=== PATIENT | female | born 1970 | race Hispanic/Latino ===

== ENCOUNTER 2018-02-10 13:12 | Observation (INO) | payer SELFPAY ==
[~2018-02-10] VITALS: Ht 157.5 cm; Wt 83.5 kg
[2018-02-10] MEDS ORDERED: SODIUM CHLORIDE 0.9% 250ML 250 ML IV ONE (13:30)
[2018-02-10 13:48] LABS: BASOPHILS % 0.7 % (0.0-1.0); EOSINOPHILS # (AUTO) 0.1 (0.0-0.4); EOSINOPHILS % 1.8 % (0.0-6.0); LYMPHOCYTES # (AUTO) 1.8 (1.0-3.2); LYMPHOCYTES % 32.7 % (18.0-39.1); MEAN CORPUSCULAR HGB CONC 28.1 g/dL (31-35); MEAN CORPUSCULAR VOLUME 67.5 fL (81-99); MONOCYTES # (AUTO) 0.5 (0.2-0.8); NEUTROPHILS # (AUTO) 3.1 (2.1-6.9); NEUTROPHILS % 55.4 % (38.7-80.0); PLATELET COUNT 257 x10e3/uL (140-360); RED BLOOD COUNT 3.48 x10e6/uL (3.6-5.1); RED CELL DISTRIBUTION WIDTH 17.7 % (11.7-14.4)
[2018-02-10 13:56] LABS: INR 0.88; PROTHROMBIN TIME 12.8 seconds (11.9-14.5)
[2018-02-10 13:57] LABS: PARTIAL THROMBOPLASTIN TIME 19.8 seconds (23.8-35.5)
[2018-02-10 13:58] LABS: HEMATOCRIT 23.5 % (34.2-44.1); HEMOGLOBIN 6.6 g/dL (12.0-16.0)
[2018-02-10 14:04] LABS: ANION GAP 13.3 mmol/L (8-16); BLOOD UREA NITROGEN 14 mg/dL (7-26); BUN/CREATININE RATIO 20 (6-25); CALCIUM 9.4 mg/dL (8.4-10.2); CARBON DIOXIDE 21 mmol/L (22-29); CHLORIDE 109 mmol/L (98-107); CREATININE, SERUM 0.71 mg/dL (0.57-1.11); EST GLOMERULAR FILTRATION RATE > 60 ML/MIN (60-); GLUCOSE 87 mg/dL (74-118); POTASSIUM 4.3 mmol/L (3.5-5.1); SODIUM 139 mmol/L (136-145); TOTAL IRON BINDING CAPACITY 623 ug/dL (261-478); TRANSFERRIN 445 mg/dL (180-382)
[2018-02-10 14:13] LABS: % IRON SATURATION 1 % (15-50); IRON < 5 ug/dL (50-170)
[2018-02-10 14:28] LABS: FERRITIN < 1.00 ng/mL (4.63-204.00)
[2018-02-10] MEDS ORDERED: SODIUM CHLORIDE FLUSH 10 ML SYR INJ PRN (15:00)
[2018-02-10 16:04] VITALS: BP 122/63
[2018-02-10 16:09] VITALS: BP 122/63
[2018-02-10 16:10] VITALS: BP 122/63
[2018-02-10] MEDS ORDERED: SODIUM CHLORIDE 0.9% 250ML 250 ML ONE (17:02)
--- NOTE | 2018-02-10 17:51 | Diagnostic Imaging Report ---
EXAM: Transabdominal and Transvaginal Pelvic Ultrasound INDICATION: ^MENORRHAGIA. Continuously bleeding since 01/02/2018. Patient received Depo-Provera shot 3 days ago at an outside clinic. Some unknown past surgical history to control internal bleeding in 1989. COMPARISON: None TECHNIQUE: Grayscale transverse and sagittal transabdominal and transvaginal images were obtained of the pelvis. Transvaginal imaging was medically necessary to better evaluate the endometrium and the adnexa. CLINICAL HISTORY: 47 year old A0; last menstrual period: Continued bleeding since 01/02/2018.. FINDINGS: Suboptimal exam with limited views. Uterus Orientation: Normal Size: 10.6 cm, Normal Mass: Heterogeneous with a questionable 4.9 x 3.0 x 4.8 cm mass posteriorly. This extends beyond the serosal margin. Cervix: Normal Endometrium: Thickness: 1.7 cm, thickened. Appearance: Heterogeneous echotexture without focal thickening. Increased vascularity. Right ovary: Not visualized Left ovary: Not visualized Adnexa: Normal Cul-de-sac: No free fluid IMPRESSION: 1. Mildly thickened heterogeneous endometrial stripe with internal vascularity. This is highly concerning for endometrial hyperplasia or carcinoma. Recommend D[employer] CUTTER DI[employer]OND consult. 2. Ill-defined heterogeneous lesion along the posterior myometrium. This may represent focal adenomyosis. However, limited visualization. Recommend further evaluation. Signed by: Dr. Newton Ontiveros M.D. on 02/10/2018 5:48 PM
--- NOTE | 2018-02-10 17:51 | Diagnostic Imaging Report ---
EXAM: Transabdominal and Transvaginal Pelvic Ultrasound INDICATION: ^MENORRHAGIA. Continuously bleeding since 01/02/2018. Patient received Depo-Provera shot 3 days ago at an outside clinic. Some unknown past surgical history to control internal bleeding in 1989. COMPARISON: None TECHNIQUE: Grayscale transverse and sagittal transabdominal and transvaginal images were obtained of the pelvis. Transvaginal imaging was medically necessary to better evaluate the endometrium and the adnexa. CLINICAL HISTORY: 47 year old A0; last menstrual period: Continued bleeding since 01/02/2018.. FINDINGS: Suboptimal exam with limited views. Uterus Orientation: Normal Size: 10.6 cm, Normal Mass: Heterogeneous with a questionable 4.9 x 3.0 x 4.8 cm mass posteriorly. This extends beyond the serosal margin. Cervix: Normal Endometrium: Thickness: 1.7 cm, thickened. Appearance: Heterogeneous echotexture without focal thickening. Increased vascularity. Right ovary: Not visualized Left ovary: Not visualized Adnexa: Normal Cul-de-sac: No free fluid IMPRESSION: 1. Mildly thickened heterogeneous endometrial stripe with internal vascularity. This is highly concerning for endometrial hyperplasia or carcinoma. Recommend MEDICAL BILLING REPRESENTATIVE consult. 2. Ill-defined heterogeneous lesion along the posterior myometrium. This may represent focal adenomyosis. However, limited visualization. Recommend further evaluation. Signed by: Dr. Newton Ontiveros M.D. on 02/10/2018 5:48 PM
[2018-02-10] MEDS: ACETAMINOPHEN 325 MG TAB PO PRN (18:36)
[2018-02-10 20:00] VITALS: BP 132/66
[2018-02-11] VITALS: BP 114/63
[2018-02-11 04:00] VITALS: BP 108/67
[2018-02-11 04:46] LABS: BASOPHILS % 0.6 % (0.0-1.0); EOSINOPHILS # (AUTO) 0.2 (0.0-0.4); EOSINOPHILS % 2.7 % (0.0-6.0); HEMATOCRIT 27.8 % (34.2-44.1); HEMOGLOBIN 8.3 g/dL (12.0-16.0); LYMPHOCYTES # (AUTO) 2.8 (1.0-3.2); LYMPHOCYTES % 44.5 % (18.0-39.1); MEAN CORPUSCULAR HEMOGLOBIN 21.6 pg (28-32); MEAN CORPUSCULAR HGB CONC 29.9 g/dL (31-35); MEAN CORPUSCULAR VOLUME 72.2 fL (81-99); MONOCYTES # (AUTO) 0.6 (0.2-0.8); MONOCYTES % 9.1 % (4.4-11.3); NEUTROPHILS # (AUTO) 2.7 (2.1-6.9); NEUTROPHILS % 42.9 % (38.7-80.0); PLATELET COUNT 204 x10e3/uL (140-360); RED BLOOD COUNT 3.85 x10e6/uL (3.6-5.1)
[2018-02-11 05:13] LABS: ANION GAP 11.5 mmol/L (8-16); BLOOD UREA NITROGEN 13 mg/dL (7-26); BUN/CREATININE RATIO 19 (6-25); CALCIUM 8.5 mg/dL (8.4-10.2); CARBON DIOXIDE 20 mmol/L (22-29); CHLORIDE 110 mmol/L (98-107); CREATININE, SERUM 0.69 mg/dL (0.57-1.11); EST GLOMERULAR FILTRATION RATE > 60 ML/MIN (60-); GLUCOSE 92 mg/dL (74-118); POTASSIUM 4.5 mmol/L (3.5-5.1); SODIUM 137 mmol/L (136-145)
[2018-02-11] MEDS ORDERED: ASCORBIC ACID500 MG PO (07:01)
[2018-02-11] MEDS ORDERED: FERROUS SULFAT325 MG PO (07:01)
[2018-02-11 07:07] LABS: CHOL/HDL RATIO 3.1 (3.0-3.6)
[2018-02-11 08:22] VITALS: BP 129/64
[2018-02-11] MEDS ORDERED: SODIUM FERRIC GLUCONATE COMPLX 125 MG in SODIUM CHLORIDE 0.9% 100 ML 100 ML IV SCH (09:00)
[2018-02-11] MEDS ORDERED: ASCORBIC ACID 500 MG TAB PO SCH (09:00)
[2018-02-11] MEDS ORDERED: FERROUS SULFATE 325 MG TAB PO SCH (09:00)
[2018-02-11 09:18] VITALS: BP 129/64
--- NOTE | 2018-02-11 11:15 | History and Physical ---
PRIMARY CARE PHYSICIAN: None. CHIEF COMPLAINT: Vaginal bleeding. HISTORY OF PRESENT ILLNESS: This is a 47-year-old woman with a history of severe anemia requiring blood transfusion in the past as well as a history of internal hemorrhaging after the child delivery in 1989 and surgical procedure, now developing persistent vaginal bleeding for the past month. Has bilateral pelvic discomfort/pain, which she states is at the ovary site. She has not seen her client care manager. Patient uses about 5 pads per day, but earlier this month, she was using as many as 10 pads per day due to vaginal bleeding. PAST MEDICAL HISTORY: Anemia, internal hemorrhage after child delivery in 1989, status post surgical management. PAST SURGICAL HISTORY: Surgical management regarding internal hemorrhage after child delivery. ALLERGIES: PER ELECTRONIC MEDICAL RECORD. FAMILY AND SOCIAL HISTORY: Patient is , she has no children. No alcohol, illicits, or cigarettes. MEDICATIONS: Per electronic medical record. REVIEW OF SYSTEMS: Denies any fevers, chills, sweats, nausea, vomiting, or diarrhea. Denies any headache and chest pain. PHYSICAL EXAMINATION VITAL SIGNS: Have been reviewed. GENERAL: A tired-appearing woman resting in bed. HEENT: Anicteric. CARDIOVASCULAR: Normal S1, S2. No murmurs. ABDOMEN: Soft, nondistended. She has tenderness in the pelvic region on the lateral borders near the ovary sites. The pain in the lateral pelvic sides is mild. No rebound or guarding. EXTREMITIES: No edema or calf tenderness. NEUROLOGIC: Alert and oriented x3. Moving all extremities. SKIN: Dry. PSYCHIATRIC: Flat affect. LABS: Reviewed. MEDICATIONS: Reviewed. ASSESSMENT: A 47-year-old woman with; 1. Severe microcytic anemia. 2. Iron-deficiency anemia, which is severe. 3. Obesity, body mass index is 33.7. 4. Endometrial thickness. 5. Menometrorrhagia. PLAN 1. Blood transfusion. 2. Iron infusion. 3. Start oral iron and vitamin C. 4. Gynecology consultation. 5. Patient will need to follow up outpatient with gynecology for possible hysterectomy. 6. Use SCDs for DVT prophylaxis. 7. Use Pepcid for GI prophylaxis. Job#: [id number] PEE
[2018-02-11] MEDS ORDERED: MEDROXYPROGESTERONE ACETATE 150 MG/ML VIAL IM ONE (12:45)
[2018-02-11] MEDS: ACETAMINOPHEN 325 MG TAB PO PRN (12:48)
[2018-02-11 13:00] VITALS: BP 137/67
[2018-02-11] MEDS ORDERED: FAMOTIDINE 20 MG TAB PO SCH (16:30)
== END 2018-02-11 14:27 | disposition home or self-care (01) ==
LOC: ER 13:12 → ERHOLD 14:53 → MED/SURG 15:45
PROVIDERS: ADMIT Internal Medicine; ATTEND Internal Medicine
DX: D50.0 Iron deficiency anemia secondary to blood loss (chronic) (principal); N92.1 Excessive and frequent menstruation with irregular cycle; E66.9 Obesity, unspecified; Z68.33 Body mass index [BMI] 33.0-33.9, adult; N85.8 Other specified noninflammatory disorders of uterus
CPT/HCPCS: 36415 ×2; 36430; 76830; 76856; 80048 ×2; 80061; 82728; 83036; 83540; 84466; 85025 ×2; 85610; 85730; 86850; 86900; 86920; 99283; G0378 ×2; J2916; J7050; P9016

== ENCOUNTER 2023-12-11 19:00 | Emergency (ER) | payer SELFPAY ==
[~2023-12-11] VITALS: Ht 154.9 cm; Wt 81.6 kg
[~2023-12-11 19:00] MED LIST: ASCORBIC ACID500 MG PO; FERROUS SULFAT325 MG PO
[2023-12-11 19:54] VITALS: PULSE 110; RESP 22; TEMP 100.8
[2023-12-11] MEDS: ONDANSETRON HCL 4 MG ORAL DISINTEGRATING TAB PO ONE (20:05)
[2023-12-11] MEDS: ACETAMINOPHEN 325 MG TAB PO STA (20:05)
[2023-12-11] MEDS ORDERED: ONDANSETRON ODT4 MG PO (21:02)
[2023-12-11] MEDS ORDERED: AMOX TR-K CLV1 EAC2 PO (21:02)
[2023-12-11 21:11] VITALS: BP 116/74; PULSE 88; RESP 19; TEMP 98.8; O2SAT 100
== END 2023-12-11 21:08 | disposition home or self-care (01) ==
LOC: ER 19:10
DX: R50.9 Fever, unspecified (principal); R51.9 Headache, unspecified; R11.2 Nausea with vomiting, unspecified; D64.9 Anemia, unspecified
CPT/HCPCS: 83518; 87070; 99283; Q0162